=== PATIENT | male | born 1950 | race Caucasian/White ===

== ENCOUNTER → 2023-02-08 09:43 | Outpatient (REF) | payer MEDICARE, OTHER, SELFPAY | LOC: WOUND 09:43 | PROVIDERS: ATTENDING PHYSICIAN Surgery; REFERRING PHYSICIAN Internal Medicine | DX: L97.822 Non-pressure chronic ulcer of other part of left lower leg with fat layer exposed (principal); I10 Essential (primary) hypertension | CPT/HCPCS: 11042; 11045 ==

== ENCOUNTER → 2023-02-14 11:33 | Outpatient (REF) | payer MEDICARE, OTHER, SELFPAY | LOC: WOUND 11:33 | PROVIDERS: ATTENDING PHYSICIAN Surgery; REFERRING PHYSICIAN Internal Medicine | DX: L97.822 Non-pressure chronic ulcer of other part of left lower leg with fat layer exposed (principal); I10 Essential (primary) hypertension | CPT/HCPCS: 11042; 11045 ==

== ENCOUNTER 2023-07-16 09:37 | Outpatient (RCR) | payer MEDICARE, OTHER, SELFPAY | END 2023-07-16 23:59 | disposition home or self-care (01) | LOC: CRHB 09:37 | PROVIDERS: ATTENDING PHYSICIAN Internal Medicine | DX: Z95.2 Presence of prosthetic heart valve (principal) | CPT/HCPCS: G0422; G0423 ==

== ENCOUNTER 2023-08-15 09:38 | Outpatient (RCR) | payer MEDICARE, OTHER, SELFPAY | END 2023-08-15 23:59 | disposition home or self-care (01) | LOC: CRHB 09:38 | PROVIDERS: ATTENDING PHYSICIAN Internal Medicine; FAMILY PHYSICIAN Internal Medicine | DX: Z95.2 Presence of prosthetic heart valve (principal) | CPT/HCPCS: 93306; G0422; G0423 ==

== ENCOUNTER 2023-09-10 09:27 | Outpatient (RCR) | payer MEDICARE, OTHER, SELFPAY | END 2023-09-10 23:59 | disposition home or self-care (01) | LOC: CRHB 09:27 | PROVIDERS: ATTENDING PHYSICIAN Internal Medicine | DX: Z95.5 Presence of coronary angioplasty implant and graft (principal); Z95.2 Presence of prosthetic heart valve (principal); Z98.890 Other specified postprocedural states; I10 Essential (primary) hypertension | CPT/HCPCS: G0422; G0423 ==

== ENCOUNTER → 2023-12-24 08:10 | Outpatient (REF) | payer MEDICARE, OTHER, SELFPAY ==
[2023-12-24 09:25] LABS: Blood Urea Nitrogen 18 mg/dl (9-20); Calcium 9.5 mg/dl (8.4-10.2); Carbon Dioxide 28 mmol/L (22-30); Chloride 105 mmol/L (98-107); Glucose 100 mg/dl (70-99); Potassium 4.8 mmol/L (3.5-5.1); Sodium 139 mmol/L (135-145); eGFR > 60.00
== END ==
LOC: REG 08:10
PROVIDERS: ATTENDING PHYSICIAN Thoracic Surgery (Cardiothoracic Vascular Surgery); FAMILY PHYSICIAN Internal Medicine
DX: Z98.890 Other specified postprocedural states (principal); Z86.79 Personal history of other diseases of the circulatory system; Z95.2 Presence of prosthetic heart valve
CPT/HCPCS: 36415; 80048

== ENCOUNTER → 2024-01-04 13:40 | Outpatient (REF) | payer MEDICARE, OTHER, SELFPAY | LOC: RAD 13:40 | PROVIDERS: ATTENDING PHYSICIAN Thoracic Surgery (Cardiothoracic Vascular Surgery) | DX: Z95.2 Presence of prosthetic heart valve (principal); Z86.79 Personal history of other diseases of the circulatory system; Z98.890 Other specified postprocedural states | CPT/HCPCS: 71275; Q9967 ==

== ENCOUNTER → 2024-02-14 07:50 | Outpatient (REF) | payer MEDICARE, OTHER, SELFPAY ==
[2024-02-14 08:42] LABS: % Basophils 1.3 % (0-2); % Eosinophils 6.2 % (0-6); % Immature Granulocytes 0.3 % (0-0.5); % Lymphocytes 24.6 % (20.5-51.1); % Monocytes 12.2 % (1.7-9.3); % Neutrophils 55.4 % (42.2-75.2); Absolute Basophils 0.1 10^3/uL (0-0.2); Absolute Eosinophils 0.4 10^3/uL (0-0.7); Absolute Lymphocytes 1.7 10^3/uL (1.2-3.4); Absolute Monocytes 0.9 10^3/uL (0.1-0.6); Absolute Neutrophils 3.8 10^3/uL (1.4-6.5); Hemoglobin 14.6 g/dL (13.0-18.0); Mean Corp Hgb Conc. 33.2 g/dL (33.0-37.0); Mean Corpuscular Hgb 29.5 pg (27.0-31.0); Mean Corpuscular Volume 88.9 fL (80.0-94.0); Mean Platelet Volume 10.2 fL (7.4-10.4); Nucleated Red Blood Cells % 0 % (-); Platelet Count 298 10^3/uL (130-400); Red Blood Cell Count 4.95 10^6/uL (4.70-6.10); Red Cell Dist. Width 13.6 % (11.5-14.5); White Blood Cell Count 6.9 10^3/uL (4.8-10.8)
[2024-02-14 09:22] LABS: ALT (SGPT) 27 U/L (0-50); AST (SGOT) 35 U/L (17-59); Albumin 4.3 g/dl (3.5-5.0); Alkaline Phosphatase 64 U/L (38-126); Blood Urea Nitrogen 17 mg/dl (9-20); Calcium 9.6 mg/dl (8.4-10.2); Carbon Dioxide 27 mmol/L (22-30); Chloride 105 mmol/L (98-107); Glucose 99 mg/dl (70-99); HDL Cholesterol 40 mg/dl; LDL Cholesterol, Calculated 82 mg/dl; Potassium 4.9 mmol/L (3.5-5.1); Sodium 143 mmol/L (135-145); Total Bilirubin 0.5 mg/dl (0.2-1.3); Total Cholesterol 154 mg/dl (50-199); Total Protein 6.7 g/dl (6.3-8.2); Triglyceride 161 mg/dl (10-149); Very Low Density Lipoprotein 32 mg/dl (0-30); eGFR > 60.00
== END ==
LOC: RAD 07:50
PROVIDERS: ATTENDING PHYSICIAN Internal Medicine
DX: B33.24 Viral cardiomyopathy (principal); J45.41 Moderate persistent asthma with (acute) exacerbation; E78.00 Pure hypercholesterolemia, unspecified; I71.21 Aneurysm of the ascending aorta, without rupture; I10 Essential (primary) hypertension; R53.82 Chronic fatigue, unspecified; Z00.01 Encounter for general adult medical examination with abnormal findings
CPT/HCPCS: 36415; 71046; 80053; 80061; 84443; 85025

== ENCOUNTER → 2024-09-30 08:15 | Outpatient (REF) | payer MEDICARE, OTHER, SELFPAY ==
[2024-09-30 10:27] LABS: ALT (SGPT) 30 U/L (0-50); AST (SGOT) 30 U/L (17-59); Albumin 4.3 g/dl (3.5-5.0); Alkaline Phosphatase 67 U/L (38-126); Blood Urea Nitrogen 19 mg/dl (9-20); Calcium 9.5 mg/dl (8.4-10.2); Carbon Dioxide 27 mmol/L (22-30); Chloride 107 mmol/L (98-107); Glucose 105 mg/dl (70-99); HDL Cholesterol 45 mg/dl; LDL Cholesterol, Calculated 94 mg/dl; Potassium 4.8 mmol/L (3.5-5.1); Sodium 142 mmol/L (135-145); Total Bilirubin 0.6 mg/dl (0.2-1.3); Total Cholesterol 170 mg/dl (50-199); Total Protein 6.7 g/dl (6.3-8.2); Triglyceride 155 mg/dl (10-149); Very Low Density Lipoprotein 31 mg/dl (0-30); eGFR > 60.00
== END ==
LOC: RCS 08:15
PROVIDERS: ATTENDING PHYSICIAN Internal Medicine; FAMILY PHYSICIAN Internal Medicine
DX: I42.8 Other cardiomyopathies (principal); I34.0 Nonrheumatic mitral (valve) insufficiency; I77.810 Thoracic aortic ectasia; I35.1 Nonrheumatic aortic (valve) insufficiency; I10 Essential (primary) hypertension; E78.01 Familial hypercholesterolemia
CPT/HCPCS: 36415; 80053; 80061; 93306

== ENCOUNTER 2024-10-05 08:32 | Emergency (ER) | payer MEDICARE, OTHER, SELFPAY ==
[2024-10-05 08:33] VITALS: BMI 29.2
[2024-10-05 08:34] VITALS: BP 124/92
[2024-10-05 09:24] LABS: Glucose - Point of Care 125 mg/dl (70-99)
[2024-10-05] MEDS: TORADOL 30 MG IV (09:59)
[2024-10-05] MEDS: NSS 1000 IV (09:59)
[2024-10-05 10:00] VITALS: BP 129/74
[2024-10-05] MEDS: ANCEF 10 IV (10:00)
--- NOTE | 2024-10-05 10:01 | ED.GENMED ---
History of Present Illness
General
Chief Complaint: Skin Problem
Source: patient
Exam Limitations: none
Time Seen by Provider: 10/05/24 09:17
Nursing documentation reviewed up to this point in time: agreed with
History of Present Illness
History of Present Illness:
74-year-old male swelling of his right upper thigh he picked a pimple and some redness subjective fevers, no nausea or vomiting has a tender area in his right groin looks like a lymph node, no antibiotics no travel was going to [place] he wants to
get checked out before he goes not known to be diabetic
Past History
Past History
ED Past Medical History: CHF, GERD, HTN, Hypercholesterolemia and Valvular disease
ED Past Surgical History: Appendectomy and Orthopedic
Social History
Tobacco: Non-smoker
Alcohol: None
Drug: None
Personal:
Living: with family
Employment: Retired
Review of Systems
Review of Systems
All Other Systems: Not applicable
Constitutional: Reports fever and fatigue
EENT: Reports no symptoms
Respiratory: Reports no symptoms
Cardiac: Reports no symptoms
ABD/GI: Reports no symptoms
Skin: Reports other
Neurological: Reports weakness
Hematologic/Lymphatic: Reports no symptoms
Psychiatric: Reports no symptoms
Phy Exam
Physical Exam
Physical Exam:
Physical Exam
General: no apparent distress, not acutely ill
Neck: no jaundice
Heart: s1/s2 regular rate and rhythm, no murmur. equal radial pulses.
Lungs: no acute respiratory distress. clear bilaterally
Abdomen:noded in right groin, no abd tenderness
Neuro: alert and oriented. no focal neurological deficits
Skin: 3 cm cellulitis without overt abscess right upper groin
Psychiatric: well kept. interactive and cooperative
Extremities: no edema.
Course
Orders/Labs/Results
Orders:
Orders
10/05/24 09:17
Bedside Glucose- Treatment ONCE
10/05/24 09:47
US Non Vasc LOWER Ext RT Urgent
Reason For Exam: abscess ?
10/05/24 09:48
0.9% Sodium Chloride 1000 ml [Nss] 1,000 ml IV BOLUS
Ketorolac [Toradol] 30 mg IV NOW STA
10/05/24 09:49
CeFAZolin 2 GRAM [Ancef] 2 grams in 10 ml IV NOW
10/05/24 10:03
Add On- LAB Urgent
Tests Added?: lyme progressive
10/05/24 10:35
Complete Blood Count/With Diff Urgent
Comprehensive Metabolic Panel Urgent
Lyme Progressive Urgent
Comment: ADD ON
Abnormal Lab Results
10/05/24 10/05/24
09:23 10:35
MCH 31.1 H pg
(27.0-31.0)
Absolute Lymphs (auto) 0.7 L 10^3/uL
(1.2-3.4)
Neutrophils % 76.2 H %
(42.2-75.2)
Lymphocytes % 12.8 L %
(20.5-51.1)
BUN 22 H mg/dl
(9-20)
Glucose 100 H mg/dl
(70-99)
ALT 55 H U/L
(0-50)
POC Glucose 125 H mg/dl
(70-99)
10/05/24 10:35
10/05/24 10:35
Vital Signs
Initial and Last Documented VS:
Initial Vital Signs
Temp Pulse Resp BP Pulse Ox
99.0 F 107 16 124/92 98
10/05/24 08:34 10/05/24 08:34 10/05/24 08:34 10/05/24 08:34 10/05/24 08:34
Last Documented Vital Signs
Temp Pulse Resp BP Pulse Ox
99.0 F 98 16 129/74 99
10/05/24 08:34 10/05/24 10:00 10/05/24 10:00 10/05/24 10:00 10/05/24 10:00
MDM/Problems Addressed
Differential Diagnosis Includes:
Dermatitis cellulitis abscess with what appears to be a reactive lymph node
MDM/Problems Addressed:
Rash on the right groin
Chronic conditions affecting care: HTN
Acute Exacerbation and/or Progression of Chronic Illness: HTN
*Radiology
Radiology exam reviewed: preliminary read by ED provider
*Pulse Oximetry
Patient hypoxic: no
*Critical Care Note
Total Time (30-74mins, 75-104mins- exclusive of procedures): Not Applicable
Update Note
Update Note:
Update reviewed clinical suspicion with the patient, will recommend some antibiotics, will check some imaging to see if he has a collection which I cannot appreciate on physical exam, if he does have a collection we will proceed with incision and
drainage, has some fatigue, will check Lyme test also screening blood work did not believe he has sepsis
Update labs noted ultrasound report noted nothing to drain will give him a little bit broader spectrum than just Ancef
ED Attending Note
-
Portions of this chart may have been created with voice recognition software.� Occasional wrong word or��sound alike� substitutions may have occurred due to the inherent limitations of voice recognition software.
Discharge Plan
Departure
Patient Disposition: Home (Routine Discharge)
Date of Disposition: 10/05/24
Time of Disposition: 11:30
Patient with high blood pressure during this ER visit?: No
Condition: Good
Discharge Problem:
Cellulitis
Instructions: Cellulitis (Skin Infection), Adult (DC)
Prescriptions:
New
amoxicillin-pot clavulanate 875-125 mg tablet
1 tab PO BID Qty: 14 0RF
doxycycline hyclate 100 mg tablet
100 mg PO BID 7 Days Qty: 14 0RF
No Action
cyanocobalamin (vitamin B-12) 1,000 MCG tablet
1,000 mcg PO DAILY
tamsulosin 0.4 MG capsule
0.4 mg PO QPM
cholecalciferol (vitamin D3) 1,000 UNITS tablet
1,000 units PO DAILY
multivitamin with folic acid [Tab-A-Jennifer] 1 TABLET tablet
1 tab PO DAILY
rosuvastatin [Crestor] 20 mg Tablet
20 mg PO DAILY
acetaminophen 500 mg Tablet
500 mg PO PRN PRN (Reason: pain)
Balance Of Nature
3 tab PO Q48H
Entresto 24-26 mg Tablet
1 tab PO BID
aspirin [Children's Aspirin] 81 mg Tablet,Chewable
81 mg PO DAILY Qty: 1 0RF
metoprolol tartrate 25 mg Tablet
25 mg PO Q12 Qty: 60 3RF
sennosides-docusate sodium [Stool Softener-Stimulant Laxat] 8.6-50 mg Tablet
1 tab PO Q12 Qty: 30 1RF
pantoprazole 40 mg Tablet,Delayed Release (Dr/Ec)
40 mg PO DAILY Qty: 30 0RF
oxycodone 5 mg Tablet
5 mg PO Q6HPRN PRN (Reason: moderate pain) Qty: 15 0RF
amiodarone [Pacerone] 200 mg tablet
200 mg PO BID Qty: 60 1RF
potassium chloride 20 mEq tablet extended release
20 meq PO DAILY Qty: 10 2RF
furosemide [Lasix] 40 mg tablet
40 mg PO DAILY Qty: 10 2RF
Referrals:
Luis Gayle MD [Family Provider] - Follow up in 2-3 days
Activity Restrictions/Additional Instructions:
Warm compresses 3-4 times a day
Start antibiotics as prescribed
Return to the ER if worsening symptoms
Interventions
Interventions:
*Risk Screen - Suicide Last Done: 10/05/24 08:34
*General Assessment Last Done: 10/05/24 08:34
*Neglect/Abuse Screening Last Done: 10/05/24 08:34
*ED COVID-19 Vaccine History Last Done: 10/05/24 08:34
Discharge Date and Time
Print Language: RWANDAN
[2024-10-05 11:01] LABS: % Basophils 0.9 % (0-2); % Eosinophils 0.4 % (0-6); % Immature Granulocytes 0.4 % (0-0.5); % Lymphocytes 12.8 % (20.5-51.1); % Monocytes 9.3 % (1.7-9.3); % Neutrophils 76.2 % (42.2-75.2); Absolute Basophils 0.1 10^3/uL (0-0.2); Absolute Lymphocytes 0.7 10^3/uL (1.2-3.4); Absolute Monocytes 0.5 10^3/uL (0.1-0.6); Absolute Neutrophils 4.1 10^3/uL (1.4-6.5); Hematocrit 48.1 % (39.0-52.0); Hemoglobin 16.2 g/dL (13.0-18.0); Mean Corp Hgb Conc. 33.7 g/dL (33.0-37.0); Mean Corpuscular Hgb 31.1 pg (27.0-31.0); Mean Corpuscular Volume 92.3 fL (80.0-94.0); Mean Platelet Volume 10.2 fL (7.4-10.4); Nucleated Red Blood Cells % 0 % (-); Platelet Count 212 10^3/uL (130-400); Red Blood Cell Count 5.21 10^6/uL (4.70-6.10); Red Cell Dist. Width 12.3 % (11.5-14.5); White Blood Cell Count 5.4 10^3/uL (4.8-10.8)
[2024-10-05 11:14] LABS: ALT (SGPT) 55 U/L (0-50); AST (SGOT) 57 U/L (17-59); Albumin 4.5 g/dl (3.5-5.0); Alkaline Phosphatase 84 U/L (38-126); Blood Urea Nitrogen 22 mg/dl (9-20); Calcium 9.8 mg/dl (8.4-10.2); Carbon Dioxide 29 mmol/L (22-30); Chloride 102 mmol/L (98-107); Estimated Creatinine Clearance 60 ml/min; Glucose 100 mg/dl (70-99); Potassium 4.7 mmol/L (3.5-5.1); Sodium 140 mmol/L (135-145); Total Bilirubin 0.6 mg/dl (0.2-1.3); Total Protein 7.2 g/dl (6.3-8.2); eGFR > 60.00
[2024-10-05] MEDS: VIBRAMYCIN 100 MG PO (11:40)
[2024-10-05] MEDS: AUGMENTIN 875 MG/125 MG 1 TABLET PO (11:40)
[2024-10-06 12:01] LABS: Lyme Antibody Screen, EIA Negative (Negative)
== END 2024-10-05 11:36 | disposition home or self-care (01) ==
LOC: EMR 08:32
PROVIDERS: EMERGENCY PHYSICIAN Emergency Medicine; FAMILY PHYSICIAN Internal Medicine
DX: L03.115 Cellulitis of right lower limb (principal); I11.0 Hypertensive heart disease with heart failure; I50.9 Heart failure, unspecified; E78.00 Pure hypercholesterolemia, unspecified; Z90.49 Acquired absence of other specified parts of digestive tract
CPT/HCPCS: 99284; 96374; 96375; 96361; 76882; 80053; 82962; 85025; 86618

== ENCOUNTER → 2024-12-29 09:57 | Outpatient (REF) | payer MEDICARE, OTHER, SELFPAY | LOC: RAD 09:57 | PROVIDERS: ATTENDING PHYSICIAN Thoracic Surgery (Cardiothoracic Vascular Surgery); FAMILY PHYSICIAN Internal Medicine | DX: Z98.890 Other specified postprocedural states (principal) | CPT/HCPCS: 71275; Q9967 ==